=== PATIENT | female | born 1960 | race Caucasian/White ===

== ENCOUNTER → 2018-11-27 | Outpatient (CLI) | payer OTHER ==
--- NOTE | 2018-11-27 11:30 | PCVCIMAG ---
APPROVED REPORT Study performed: 11/27/2018 10:20:25 Exam: Stress Echocardiogram Indication: Abnormal EKG, Pre-op clearance Patient Location: Echo lab Stress Nurse: Jordyn Tobar RN Room #: 2 Status: routine Ht: 5 ft 4 in HR: 79 bpm BP: 128/84 mmHg Rhythm: Incomplete RBBB Medical History Medical History: HTN, Hyperlipidemia Cardiac Risk Factors: HTN, Hyperlipidemia Previous Cardiac Procedures: none Pretest Chest Pain Characteristics: No chest pain Exercise History: Physically active Procedure The patient underwent an Exercise Stress Test using the Bakari Protocol. Blood pressure, heart rate, and EKG were monitored. An Echocardiogram was performed by multi care technician in four stages in quad fashion. At peak stress, four selected images were obtained and placed side by side with resting images for comparison. Stress Test Details Stress Test: Exercise stress testing was performed using a Bakari protocol. HR Resting HR: 74 bpmMax Heart Rate (APMHR): 162 bpm Max HR Achieved: 157 bpmTarget HR (85% APMHR): 137 bpm % of APMHR: 96 Recovery HR: 97 bpm HR response to stress: Normal HR response to stress BP Resting BP: 128/86 mmHg Max BP: 160/100 mmHg Recovery BP: 128/90 mmHg BP response to stress: Normal blood pressure response to stress. ECG Resting ECG: Sinus Rhythm, Incomplete RBBB Stress ECG: Sinus Rhythm, Incomplete RBBB ST Change: Non-ischemic Arrhythmia: Rare PAC Recovery ECG: Sinus Rhythm, Incomplete RBBB Recovery ST Change: Non-ischemic Recovery Arrhythmia: Rare PAC Clinical Reason for Termination: Maximal effort Stress Symptoms: fatigue Exercise duration: 9 min 19 sec Highest Stage Achieved: Stage 4: 4.2 mph at 16% grade. Exercise capacity: 11.10 METs Overall Exercise Capacity for Age: Good Scale: Active Angina Score: None No complications. Stress ECG Conclusion The patient exercised according to the BAKARI protocol for 9:19 mins; achieving a work level of11.10 METS. The resting heart rate of 74 bpm coty to a maximum heart rate of 157 bpm. This value represent 96% of the maximal, age-predicted heart rate. The resting blood pressure of 128/86 mmHg, coty to a maximum blood pressure of 160/100 mmHg. The exercise test was stopped due to fatigue. Pre-Stress Echo The resting Echocardiogram showed normal left ventricular contractility with an estimated Ejection Fraction of about 55-60%. Normal wall motion in all segments on baseline images. Post-Stress Echo The stress Echocardiogram showed normal left ventricular contractility with an estimated Ejection Fraction of about 65-70%. Normal augmentation of wall motion in all segments on post stress images. Clinical No clinical or ECG evidence for ischemia. Conclusion Clinical Response: Non-ischemic Exercise Capacity: Average Stress ECG Response: Non-ischemic Stress Echo Images: Non-ischemic No clinical, EKG or echocardiographic evidence for ischemia. Non-diagnostic study due to technically difficult imaging. Normal stress echocardiogram with maximal exercise stress. No prior study available for comparison. <Conclusion> No clinical, EKG or echocardiographic evidence for ischemia. Non-diagnostic study due to technically difficult imaging. Normal stress echocardiogram with maximal exercise stress.
== END | disposition home or self-care (01) ==
LOC: PCVCIMAG 10:04
PROVIDERS: ATTEND Internal Medicine Cardiovascular Disease
DX: Z01.818 Encounter for other preprocedural examination (principal); R94.31 Abnormal electrocardiogram [ECG] [EKG]
CPT/HCPCS: 93325; 93351